=== PATIENT | male | born 1960 ===

== ENCOUNTER 2020-02-28 12:56 | Outpatient (REF) | payer OTHER, SELFPAY ==
[2020-02-28 13:46] LABS: Anion Gap 13 (12-20); Carbon Dioxide 25 mmol/L (22-29); Chloride 107 mmol/L (96-108); Potassium 4.1 mmol/l (3.3-5.1); Sodium 141 mmol/L (135-145)
== END 2020-02-28 12:57 | disposition home or self-care (01) ==
LOC: HO.HVNA 12:56
PROVIDERS: Visit Provider Internal Medicine
DX: E87.1 Hypo-osmolality and hyponatremia (principal)
CPT/HCPCS: 80051